=== PATIENT | female | born 1950 | race African-American/Black ===

== ENCOUNTER 2020-12-03 08:12 | Outpatient (RCR) | payer MEDICARE, MEDICAID | END 2020-12-18 15:48 | LOC: OPPGERO 08:12 | DX: F41.8 Other specified anxiety disorders (principal); G61.81 Chronic inflammatory demyelinating polyneuritis; Z98.84 Bariatric surgery status; E78.5 Hyperlipidemia, unspecified; M19.90 Unspecified osteoarthritis, unspecified site; K21.00 Gastro-esophageal reflux disease with esophagitis, without bleeding; I48.91 Unspecified atrial fibrillation; G62.9 Polyneuropathy, unspecified; E66.9 Obesity, unspecified; H40.9 Unspecified glaucoma; D64.9 Anemia, unspecified; G47.00 Insomnia, unspecified; M50.20 Other cervical disc displacement, unspecified cervical region; I10 Essential (primary) hypertension; E46 Unspecified protein-calorie malnutrition; K57.92 Diverticulitis of intestine, part unspecified, without perforation or abscess without bleeding; Z90.710 Acquired absence of both cervix and uterus; Z90.89 Acquired absence of other organs; Z79.899 Other long term (current) drug therapy ==

== ENCOUNTER 2020-12-21 08:49 | Outpatient (RCR) | payer MEDICARE, MEDICAID | END 2021-01-15 15:56 | LOC: OPPGERO 08:49 | DX: F33.9 Major depressive disorder, recurrent, unspecified (principal); F41.1 Generalized anxiety disorder; K21.00 Gastro-esophageal reflux disease with esophagitis, without bleeding; M19.90 Unspecified osteoarthritis, unspecified site; I48.91 Unspecified atrial fibrillation; D64.9 Anemia, unspecified; I10 Essential (primary) hypertension; K57.30 Diverticulosis of large intestine without perforation or abscess without bleeding; Z90.89 Acquired absence of other organs; Z90.710 Acquired absence of both cervix and uterus ==